=== PATIENT | female | born 1995 | race Two or more races ===

== ENCOUNTER 2020-04-27 10:47 | Emergency (ER) | payer MEDICAID ==
[~2020-04-27] VITALS: Ht 154.9 cm; Wt 123.8 kg
[2020-04-27 11:40] LABS: Basophils # (auto) 0 10 ^3/uL (0-0.2); Lymphocytes # (auto) 1.1 10 ^3/uL (0.4-5.4); Monocytes # (auto) 0.3 10 ^3/uL (0-1.3)
[2020-04-27 11:43] LABS: Basophils % (auto) 0.7 % (0.0-2.0); Eosinophils # (auto) 0.2 10 ^3/uL (0-0.8); Hematocrit 22.4 % (36.0-46.0); Lymphocytes % (auto) 17.9 % (10.0-50.0); Mean Corpuscular Hemoglobin 14.8 pg (28.0-32.0); Mean Corpuscular Volume 52.9 fL (80.0-100.0); Monocytes % (auto) 4.2 % (0.0-12.0); Neutrophils # (auto) 4.7 10 ^3/uL (1.6-8.6); Neutrophils % (auto) 74.2 % (37.0-80.0); Nucleated Red Blood Cells % 0.2 %; Platelet Count (auto) 445 10^3/uL (140-450); Red Blood Cells 4.22 10^6/uL (4.0-5.20); White Blood Cell 6.3 10^3/uL (4.4-10.8)
[2020-04-27 11:51] LABS: Albumin 3.6 g/dL (3.4-5.0); Calcium 8.6 mg/dL (8.5-10.1); Potassium 3.7 mmol/L (3.5-5.1)
[2020-04-27 11:55] LABS: BUN/Creatinine Ratio 16.1; Bilirubin, Total 0.9 mg/dL (0.2-1.0); Total Protein 7.6 g/dL (6.4-8.2)
[2020-04-27 11:56] LABS: Hemoglobin 6.3 g/dL (12.2-16.2); Red Cell Distribution Width 22.1 % (11.8-14.3)
[2020-04-27 12:01] LABS: INR 1.03 (0.9-1.15); Partial Thromboplastin Time 27.1 sec (23.0-31.2)
[2020-04-27 13:15] VITALS: BP 135/51
[2020-04-27 13:33] VITALS: BP 117/57
[2020-04-27 15:15] VITALS: BP 129/77
== END 2020-04-27 15:43 | disposition home or self-care (01) ==
LOC: ER 10:47
DX: D64.9 Anemia, unspecified (principal); N93.8 Other specified abnormal uterine and vaginal bleeding; J45.909 Unspecified asthma, uncomplicated
CPT/HCPCS: 36415; 36430; 76856; 80053; 85025; 85610; 85730; 86850; 86900; 86901; 86920; 93005; 99285; P9016